=== PATIENT | male | born 1995 | race Caucasian/White ===

== ENCOUNTER 2024-07-13 10:15 | Emergency (ER) | payer SELFPAY | END 2024-07-13 11:11 | disposition home or self-care (01) | LOC: MW.ED 10:15 | DX: K04.7 Periapical abscess without sinus (principal); Z75.8 Other problems related to medical facilities and other health care | CPT/HCPCS: 99282; 99283 ==

== ENCOUNTER 2024-11-11 08:05 | Emergency (ER) | payer SELFPAY | END 2024-11-11 08:55 | disposition home or self-care (01) | LOC: MW.ED 08:05 | DX: K04.7 Periapical abscess without sinus (principal); K02.9 Dental caries, unspecified; Z75.8 Other problems related to medical facilities and other health care | CPT/HCPCS: 99282 ==